=== PATIENT | female | born 1985 | race Caucasian/White ===

== ENCOUNTER 2016-12-08 13:05 | Emergency (ER) | payer OTHER ==
[~2016-12-08] VITALS: Ht 167.6 cm; Wt 100.2 kg
[~2016-12-08 13:05] MED LIST: LAC PO; MAC100 PO; PYRIDIUM200 MG PO
[2016-12-08 15:50] VITALS: BP 125/80
== END 2016-12-08 15:49 | disposition home or self-care (01) ==
LOC: ED 13:05
DX: S53.402A Unspecified sprain of left elbow, initial encounter (principal); S83.92XA Sprain of unspecified site of left knee, initial encounter; W18.2XXA Fall in (into) shower or empty bathtub, initial encounter; Y93.E1 Activity, personal bathing and showering; Y99.8 Other external cause status; Y92.89 Other specified places as the place of occurrence of the external cause

== ENCOUNTER 2017-10-10 08:25 | Emergency (ER) | payer OTHER ==
[~2017-10-10] VITALS: Ht 167.6 cm; Wt 101.6 kg
[2017-10-10 08:30] VITALS: Ht 167.6 cm; Wt 101.6 kg
[2017-10-10 09:58] VITALS: BP 120/64
== END 2017-10-10 09:59 | disposition home or self-care (01) ==
LOC: ED 08:25
DX: M54.30 Sciatica, unspecified side (principal)

== ENCOUNTER 2018-03-01 12:10 | Emergency (ER) | payer OTHER ==
[~2018-03-01] VITALS: Ht 167.6 cm; Wt 102.5 kg
[2018-03-01 12:14] VITALS: Ht 167.6 cm; Wt 102.5 kg
[2018-03-01 13:37] VITALS: BP 137/71
== END 2018-03-01 13:37 | disposition home or self-care (01) ==
LOC: ED 12:10
DX: S40.022A Contusion of left upper arm, initial encounter (principal); W22.8XXA Striking against or struck by other objects, initial encounter; Y93.89 Activity, other specified; Y92.89 Other specified places as the place of occurrence of the external cause; Y99.8 Other external cause status
CPT/HCPCS: J1885